=== PATIENT | male | born 1975 | race Caucasian/White ===

== ENCOUNTER 2020-04-21 05:25 | Emergency (ER) | payer OTHER ==
[2020-04-21] MEDS: Lidocaine 1% with EPINEPHrine 1:100,000 20 ML MDV INJECT ONE (06:15)
[2020-04-21 06:17] VITALS: BP 122/84; PULSE 75
[2020-04-21] MEDS: Diphtheria,Pertussis(Acell),Tetanus Vaccine 0.5 ML SDV IM ONE (06:26)
[2020-04-21] MEDS: Lidocaine 1% 20 ML MDV ONE (06:42)
[2020-04-21] MEDS: Bacitracin/Neomycin/Polymyxin B Oint 0.9 GM U/D Packet ONE (06:55)
--- NOTE | 2020-04-21 07:03 | EDM.PDOC ---
ED HPI GENERAL MEDICAL PROBLEM - General Chief Complaint: Laceration Stated Complaint: LACERATION Time Seen by Provider: 04/21/20 06:01 Source of Information: Reports: Patient History Limitations: Reports: No Limitations - History of Present Illness INITIAL COMMENTS - FREE TEXT/NARRATIVE: Patient presents with laceration on his leg that occurred at work just a few minutes ago. He was using a metal cutting wheel and it hit his leg cutting through his jeans. He denies numbness or weakness. Denies falling or any other injuries. He says last tetanus update was several years ago. He hasn't seen a doctor in several years and doesn't have a PCP. He would see someone here in [place] if needed. right knee Pain Score (Numeric/FACES): 5 - Related Data Allergies Allergy/AdvReac Type Severity Reaction Status Date / Time No Known Drug Allergies Allergy Other Verified 04/21/20 05:56 Home Meds: Home Meds . [No Known Home Meds] 04/21/20 [History] Past Medical History - Past Health History Medical/Surgical History: Denies Medical/Surgical History Social & Family History - Tobacco Use Tobacco Use Status *Q: Unknown Ever Used Tobacco ED ROS GENERAL - Review of Systems Review Of Systems: See Below Constitutional: Denies: Fever, Chills, Malaise, Weakness HEENT: Reports: No Symptoms Respiratory: Denies: Shortness of Breath, Cough Cardiovascular: Denies: Chest Pain, Lightheadedness, Syncope Endocrine: Reports: No Symptoms GI/Abdominal: Denies: Abdominal Pain, Diarrhea, Vomiting : Reports: No Symptoms Musculoskeletal: Reports: Leg Pain (acute, see HPI). Denies: Neck Pain, Shoulder Pain, Arm Pain, Back Pain Skin: Denies: Cyanosis, Jaundice, Mottled, Pallor, Diaphoresis Neurological: Denies: Confusion, Dizziness, Headache, Seizure, Syncope, Trouble Speaking, Difficulty Walking Psychiatric: Denies: Agitation, Anxiety ED EXAM, SKIN/RASH Exam: See Below Exam Limited By: No Limitations General Appearance: Alert, WD/WN, No Apparent Distress Eye Exam: Bilateral Eye: EOMI, Normal Inspection, PERRL Ears: Normal External Exam, Hearing Grossly Normal Nose: Normal Inspection, No Blood Throat/Mouth: Normal Inspection, Normal Voice, No Airway Compromise Head: Atraumatic, Normocephalic Neck: Supple, Non-Tender, Full Range of Motion, Other (On right anterior neck there is a 2 cm discreet, mobile, firm, subcutaneous mass that is nontender to palpation and not erythematous. Consistent with possible lipoma or lymph node enlargement although seems too superficial for node.) Respiratory/Chest: No Respiratory Distress, Lungs Clear, Normal Breath Sounds, No Accessory Muscle Use Cardiovascular: Regular Rate, Rhythm, No Murmur Back Exam: Full Range of Motion Extremities: Normal Range of Motion, Non-Tender, Other (There is a 6 cm transverse laceration of distal shana-lateral right thigh 3 inches proximal to knee. It extends through the dermis and subcutaneous layers but not into muscle, fascia, major vessels or nerves. Sensation is intact distal to wound. EHL/FHL intact. Distal CMS intact.) Neurological: Alert, Oriented, Normal Cognition, No Motor/Sensory Deficits Psychiatric: Normal Affect, Normal Mood Skin: Warm, Dry, Normal Color, No Rash ED SKIN PROCEDURES - Laceration/Wound Repair Right Lower Anterior Thigh Appearance: Subcutaneous, Linear, Moderately Contaminated Distal NVT: Neuro & Vascular Intact, No Tendon Injury Anesthetic Type: Local Local Anesthesia - Lidocaine (Xylocaine): 1% with EPI Local Anesthetic Volume: 5cc Skin Prep: Chlorhexidine (Hibiciens), Saline Saline Irrigation (cc's): 150 Exploration/Debridement/Repair: Wound Explored, In a Bloodless Field, Explored to Base, Moderate Debridement (tiny metal flakes from cutting wheel), Wound Margins Revised (mild at medial end to remove wheel debris) Lac/Wound length In cm: 6 Suture Size: 4-0 # of Sutures: 14 Suture Type: Nylon, Interrupted, Simple Suture Size: 4-0 # of Sutures: 3 Repaired with: Vicryl Drain Placement: No Sterile Dressing Applied: Nurse Tetanus Status Addressed: Yes Complications: No Course - Vital Signs Last Recorded V/S: Last Vital Signs Temp 97.0 F 04/21/20 05:35 Pulse 75 04/21/20 05:35 Resp 18 04/21/20 05:35 BP 122/84 04/21/20 05:35 Pulse Ox 99 04/21/20 05:35 - Orders/Labs/Meds Orders: Active Orders 24 hr Category Date Time Status Vaccines to be Administered [RC] PER UNIT ROUTINE Care 04/21/20 06:22 Active Meds: Medications Discontinued Medications Generic Name Dose Route Start Last Admin Trade Name Freq PRN Reason Stop Dose Admin Diphtheria/Tetanus/Acell Pertussis 0.5 ml 04/21/20 06:22 04/21/20 06:26 Adacel IM 04/21/20 06:23 0.5 ml .ONCE ONE Administration Lidocaine HCl Confirm 04/21/20 05:51 04/21/20 06:42 Xylocaine 1% Administered 04/21/20 05:52 Not Given Dose 20 ml .ROUTE .STK-MED ONE Lidocaine/Epinephrine 5 ml 04/21/20 06:10 04/21/20 06:15 Xylocaine 1% With Epinephrine 1:100,000 INJECT 04/21/20 06:11 5 ml ONETIME ONE Administration Neomycin/Polymyxin/Bacitracin Confirm 04/21/20 06:45 Triple Antibiotic Oint Administered 04/21/20 06:46 Dose 1 each .ROUTE .STK-MED ONE - Re-Assessments/Exams Free Text/Narrative Re-Assessment/Exam: 04/21/20 07:07 Discussed findings and treatment plan with patient who agrees. Sterile technique was used to treat, approximate and close wound as above. Patient tolerated procedure well. We discussed the lump on his right neck. He says it has been there for more than a year and started out as a pea-sized lump but has been larger recently. He will have this evaluated in ten days when he gets sutures removed. Patient discharged to home in stable condition. Departure - Departure Time of Disposition: 06:55 Disposition: Home, Self-Care 01 Condition: Good Clinical Impression: Lump on neck Laceration of right thigh without complication Qualifiers: Encounter type: initial encounter Qualified Code(s): S71.111A - Laceration without foreign body, right thigh, initial encounter - Discharge Information Instructions: Sutured Wound Care, [id number] Additional Instructions: Keep wound clean. You may wash under fresh running water or shower. Apply antibiotic ointment and fresh sterile bandage daily. Follow up with your choice of medical providers in 10 days for suture removal an d evaluation of the lump on your neck. Recheck sooner if any sign of wound infection or other problem. Sepsis Event Note (ED) - Evaluation Sepsis Screening Result: No Definite Risk - Focused Exam Vital Signs: Vital Signs Temp Pulse Resp BP Pulse Ox 04/21/20 05:35 97.0 F 75 18 122/84 99 - My Orders Last 24 Hours: My Active Orders 04/21/20 06:22 Vaccines to be Administered [RC] PER UNIT ROUTINE - Assessment/Plan Last 24 Hours: My Active Orders 04/21/20 06:22 Vaccines to be Administered [RC] PER UNIT ROUTINE
== END 2020-04-21 07:05 | disposition home or self-care (01) ==
LOC: KA.ED 05:25
DX: S71.111A Laceration without foreign body, right thigh, initial encounter (principal); R22.1 Localized swelling, mass and lump, neck; Z23 Encounter for immunization; W26.8XXA Contact with other sharp object(s), not elsewhere classified, initial encounter; Y92.89 Other specified places as the place of occurrence of the external cause; Y99.0 Civilian activity done for income or pay
CPT/HCPCS: 12002; 12032; 90471; 90715; 99282-25; 99283